=== PATIENT | female | born 1975 | race Caucasian/White ===

== ENCOUNTER 2017-12-01 13:04 | Emergency (ER) | payer BC ==
[~2017-12-01] VITALS: Ht 162.6 cm; Wt 63.0 kg
[2017-12-01 13:44] LABS: BASOPHILS # (AUTO) 0.1 K/uL (0.0-8.0); CREATININE 0.8 mg/dL (0.6-1.3); EOSINOPHILS # (AUTO) 0.1 K/uL (0.0-0.7); EOSINOPHILS % (AUTO) 1.3 % (0.0-7.0); HEMATOCRIT 38.2 % (31.2-41.9); HEMOGLOBIN 13.1 g/dL (10.9-14.3); LYMPHOCYTES # (AUTO) 1.2 K/uL (20.0-40.0); LYMPHOCYTES % (AUTO) 10.8 % (20.5-51.5); MEAN CORPUSCULAR HEMOGLOBIN 30.4 uug (24.7-32.8); MEAN CORPUSCULAR HGB CONC 34 g/dL (32.3-35.6); MEAN CORPUSCULAR VOLUME 89.1 fL (75.5-95.3); MONOCYTES # (AUTO) 0.5 K/uL (2.0-10.0); MONOCYTES % (AUTO) 4.6 % (0.0-11.0); NEUTROPHILS # (AUTO) 8.8 K/uL (1.8-8.9); NEUTROPHILS % (AUTO) 82.3 % (38.5-71.5); PLATELET COUNT (AUTO) 246 K/uL (179-408); RED BLOOD CELL COUNT(AUTO) 4.29 MIL/uL (3.63-4.92); WHITE BLOOD COUNT (AUTO) 10.7 K/uL (3.8-11.8)
[2017-12-01] MEDS ORDERED: EPIPEN (13:47)
[2017-12-01] MEDS ORDERED: ZOLP5TAB2 PO (13:47)
[2017-12-01] MEDS ORDERED: HYDR200T81 PO (13:47)
[2017-12-01] MEDS ORDERED: SCOP1PAT17 TD (13:47)
[2017-12-01] MEDS ORDERED: FLUT1BLS IH (13:47)
[2017-12-01] MEDS ORDERED: BELI200A SQ (13:47)
[2017-12-01] MEDS ORDERED: NAPR500T6 PO (13:47)
[2017-12-01] MEDS ORDERED: ALBU18HF2 INH (13:47)
[2017-12-01] MEDS ORDERED: BOTOX (13:47)
[2017-12-01] MEDS ORDERED: BUPR300T52 PO (13:47)
[2017-12-01] MEDS ORDERED: ONDA4TAB8 SL (13:47)
[2017-12-01] MEDS ORDERED: FERR325T28 PO (13:47)
[2017-12-01] MEDS ORDERED: BIOT10006 PO (13:47)
[2017-12-01] MEDS ORDERED: FLUT9.9S16 NS (13:47)
[2017-12-01] MEDS ORDERED: CELE200C PO (13:47)
[2017-12-01] MEDS ORDERED: ALPR0.255 PO (13:47)
[2017-12-01] MEDS ORDERED: TURM1CAP2 PO (13:47)
--- NOTE | 2017-12-01 14:57 | NUR ---
Patient discharged to home in stable conditon. Written and verbal after care instructions given. Patient verbalizes understanding of instructions.
== END 2017-12-01 14:58 | disposition home or self-care (01) ==
LOC: ER 13:04
DX: R07.9 Chest pain, unspecified (principal); J45.909 Unspecified asthma, uncomplicated; Z88.2 Allergy status to sulfonamides; Z88.8 Allergy status to other drugs, medicaments and biological substances; Z91.040 Latex allergy status
CPT/HCPCS: 36415; 70030-TC; 71045; 84703; 85025; 93005; A4663